=== PATIENT | male | born 1965 | race African-American/Black ===

== ENCOUNTER 2017-12-03 07:13 | Day surgery (SDC) | payer OTHER ==
[~2017-12-03 07:13] MED LIST: Buffered Lidocaine 0.9% SYRIN* 5 ML/SYR SYRINGE INTRADERM ONE
[2017-12-03] MEDS ORDERED: Acetaminophen TAB* 325 MG PO PRN (08:41)
[2017-12-03] MEDS ORDERED: Levalbuterol 0.63MG/3ML NEB* UNIT OF USE INH PRN (08:41)
[2017-12-03] MEDS ORDERED: Naloxone* 0.4 MG/ML 1 ML VIAL IV PRN (08:41)
[2017-12-03] MEDS ORDERED: DiMENhydriNATE IV* 50 MG/ML VIAL IV PUSH PRN (08:41)
[2017-12-03] MEDS ORDERED: PROCHLORPERAZINE INJ 5 MG/ML 2 ML VIAL IV PRN (08:41)
[2017-12-03] MEDS ORDERED: Midazolam* 1 MG/ML 2 ML VIAL (2 MG) ONE (08:43)
[2017-12-03] MEDS ORDERED: fentaNYL* 50 MCG/ML 2 ML VIAL (100 MCG VIAL) ONE (08:43)
[2017-12-03] MEDS ORDERED: Bupivacaine 0.25% SDV* 30 ML ONE (08:58)
[2017-12-03] MEDS ORDERED: Ketorolac INJ* 30 MG/ML 1 ML VIAL ONE (09:14)
[2017-12-03] MEDS ORDERED: Propofol* 10 MG/ML 20 ML BTL IV PUSH ONE (09:14)
[2017-12-03] MEDS ORDERED: Lidocaine 2% PF * 5 ML VIAL ONE (09:14)
[2017-12-03 09:57] VITALS: BP 118/70
--- NOTE | 2017-12-03 10:16 | OP ---
Operative Report - Blank - Operative Report Date of Operation: 12/03/17 Note: DATE OF OPERATION: 12/03/17 - [facility] DATE OF : 63 SURGEON: Taco Singleton MD JAMMER HOOKER: LAMAR López ANESTHESIOLOGIST: Dr. Lopez. ANESTHESIA: Local MAC. PRE-OP DIAGNOSIS: Right carpal tunnel syndrome. POST-OP DIAGNOSIS: Right carpal tunnel syndrome. OPERATIVE PROCEDURE: Right open carpal tunnel release. INDICATIONS: Gray has progressive right carpal tunnel syndrome. We talked about risks and benefits. He wanted to proceed. ESTIMATED BLOOD LOSS: 2 mL. COMPLICATIONS: None. FINDINGS: As expected. DESCRIPTION OF PROCEDURE: Gray was seen in the preoperative holding area. The correct side, site and the procedure were identified. We came back to the operating room. I anesthetized the operative area with 0.25% plain Marcaine. The arm was prepped and draped in usual fashion. The arm was exsanguinated with the Esmarch and the tourniquet was inflated to 250 mmHg. I made a 2 to 3 cm longitudinal incision in the standard location for an open carpal tunnel release. Dissection was carried down through the subcutaneous tissue and palmar fascia. Transverse carpal ligament was released off the radial aspect of the hook of the hamate. The release was completed distally and proximally I released the fascia and subcutaneous tissue and retracted this volarly and ulnarly and then under direct visualization I released the remainder of the transverse carpal ligament and distal antebrachial fascia to level several centimeters proximal to the wrist flexion crease. The release at this point was complete. Everything was looking good with absolutely no compression on the nerve. I irrigated out the wound. Skin was closed with 4-0 nylon suture. Wounds were dressed appropriately and he was taken to recovery room in stable condition.
== END 2017-12-03 10:00 ==
LOC: OREAST 07:13
PROVIDERS: ATTEND Orthopaedic Surgery Hand Surgery
DX: G56.01 Carpal tunnel syndrome, right upper limb (principal); E11.9 Type 2 diabetes mellitus without complications; Z79.84 Long term (current) use of oral hypoglycemic drugs; I10 Essential (primary) hypertension; M19.90 Unspecified osteoarthritis, unspecified site; F19.21 Other psychoactive substance dependence, in remission; Z87.891 Personal history of nicotine dependence
CPT/HCPCS: J1885; J2250; J2704; J3010

== ENCOUNTER 2018-03-18 06:41 | Day surgery (SDC) | payer OTHER ==
[2018-03-18] MEDS ORDERED: Ondansetron INJ* 2 MG/ML VIAL IV PRN (07:15)
[2018-03-18] MEDS ORDERED: fentaNYL* 50 MCG/ML 2 ML VIAL (100 MCG VIAL) IV PRN (07:15)
[2018-03-18] MEDS ORDERED: Naloxone* 0.4 MG/ML 1 ML VIAL IV PRN (07:15)
[2018-03-18] MEDS ORDERED: oxyCODONE/Acetamin 5/325 MG* TAB PO PRN (07:15)
[2018-03-18] MEDS ORDERED: Acetaminophen TAB* 325 MG PO PRN (07:15)
[2018-03-18] MEDS ORDERED: fentaNYL* 50 MCG/ML 2 ML VIAL (100 MCG VIAL) ONE (07:51)
[2018-03-18] MEDS ORDERED: Midazolam* 1 MG/ML 2 ML VIAL (2 MG) ONE (07:51)
[2018-03-18] MEDS ORDERED: Bupivacaine 0.5%* 50 ML VIAL ONE (08:14)
--- NOTE | 2018-03-18 09:10 | OP ---
Operative Report - Blank - Operative Report Date of Operation: 03/18/18 Note: DATE OF OPERATION: 03/18/17 - [facility] DATE OF : 1965 SURGEON: Taco Singleton MD FINANCIAL ANALYST INTERN: LAMAR López ANESTHESIOLOGIST: Dr. Cummings. ANESTHESIA: Local MAC. PRE-OP DIAGNOSIS: Left carpal tunnel syndrome. POST-OP DIAGNOSIS: Left carpal tunnel syndrome. OPERATIVE PROCEDURE: Left open carpal tunnel release. INDICATIONS: Gray has progressive left carpal tunnel syndrome. We talked about risks and benefits. He wanted to proceed. He has done well with a right carpal tunnel release. ESTIMATED BLOOD LOSS: 2 mL. COMPLICATIONS: None. FINDINGS: As expected. DESCRIPTION OF PROCEDURE: Gray was seen in the preoperative holding area. The correct side, site and the procedure were identified. We came back to the operating room. I anesthetized the operative area with 0.25% plain Marcaine. The arm was prepped and draped in usual fashion. The arm was exsanguinated with the Esmarch and the tourniquet was inflated to 250 mmHg. I made a 2 to 3 cm longitudinal incision in the standard location for an open carpal tunnel release. Dissection was carried down through the subcutaneous tissue and palmar fascia. Transverse carpal ligament was released off the radial aspect of the hook of the hamate. The release was completed distally and proximally I released the fascia and subcutaneous tissue and retracted this volarly and ulnarly and then under direct visualization I released the remainder of the transverse carpal ligament and distal antebrachial fascia to a level several centimeters proximal to the wrist flexion crease. The release at this point was complete. Everything was looking good with absolutely no compression on the nerve. I irrigated out the wound. Skin was closed with 4-0 nylon suture. Wounds were dressed appropriately and he was taken to recovery room in stable condition.
[2018-03-18] MEDS ORDERED: Propofol* 10 MG/ML 20 ML BTL IV PUSH ONE (09:38)
[2018-03-18 09:54] VITALS: BP 135/83
== END 2018-03-18 09:57 ==
LOC: OREAST 06:41
PROVIDERS: ATTEND Orthopaedic Surgery Hand Surgery
DX: G56.02 Carpal tunnel syndrome, left upper limb (principal); E11.9 Type 2 diabetes mellitus without complications; Z79.84 Long term (current) use of oral hypoglycemic drugs; I10 Essential (primary) hypertension; M19.90 Unspecified osteoarthritis, unspecified site; Z87.891 Personal history of nicotine dependence; F19.11 Other psychoactive substance abuse, in remission
CPT/HCPCS: J2250; J2704; J3010

== ENCOUNTER 2018-11-15 06:41 | Day surgery (SDC) | payer OTHER ==
[~2018-11-15 06:41] MED LIST changes: -Buffered Lidocaine 0.9% SYRIN* 5 ML/SYR SYRINGE INTRADERM ONE; +Buffered Lidocaine 1% SYRIN* 1 ML/SYRINGE INTRADERM ONE; +Famotidine IV* 10 MG/ML 2 ML (20 mg) IV ONE; +Lactated Ringers 1000 ML Bag* 1,000 ML IV SCH
[2018-11-15] MEDS ORDERED: Famotidine IV* 10 MG/ML 2 ML (20 mg) ONE (07:54)
[2018-11-15] MEDS ORDERED: Midazolam* 1 MG/ML 5 ML VIAL (5 MG) ONE (08:57)
[2018-11-15] MEDS ORDERED: fentaNYL* 50 MCG/ML 2 ML VIAL (100 MCG VIAL) ONE (08:57)
[2018-11-15] MEDS ORDERED: Bupivacaine 0.25% EPI 200,000* 30 ML SDV ONE (10:02)
[2018-11-15] MEDS ORDERED: Propofol* 10 MG/ML 20 ML BTL ONE (10:41)
[2018-11-15] MEDS ORDERED: Ketorolac INJ* 30 MG/ML 1 ML VIAL ONE (10:41)
[2018-11-15] MEDS ORDERED: Ondansetron INJ* 2 MG/ML VIAL ONE (10:41)
[2018-11-15] MEDS ORDERED: Dexamethasone IV* 4 MG/ML 1 ML (4 MG) ONE (10:41)
[2018-11-15] MEDS ORDERED: DiMENhydriNATE IV* 50 MG/ML VIAL IV PUSH PRN (10:56)
[2018-11-15] MEDS ORDERED: Acetaminophen TAB* 325 MG PO PRN (10:56)
[2018-11-15 11:32] VITALS: BP 155/89
[2018-11-15] MEDS ORDERED: Acetaminophen TAB* 325 MG ONE (11:34)
--- NOTE | 2018-11-15 21:51 | OP ---
DATE OF OPERATION: 11/15/18 - [facility] DATE OF : 63 SURGEON: Taco Singleton M.D. OUTPATIENT THERAPIST: LAMAR López. ANESTHESIOLOGIST: Dr. Kerns. ANESTHESIA: Local MAC. PRE-OP DIAGNOSIS: Right trigger thumb, stuck in flexion. POST-OP DIAGNOSIS: Right trigger thumb, stuck in flexion. OPERATIVE PROCEDURE: Right trigger thumb release. INDICATIONS: Gray' thumb is stuck in flexion. We had talked about risks and benefits. He had wanted to proceed. ESTIMATED BLOOD LOSS: 1 mL. COMPLICATIONS: None. FINDINGS: See above and below. DESCRIPTION OF PROCEDURE: Gray was seen in the preoperative holding area. The correct site, side, and procedure were identified. We came back to the operating room where we had time-out and then I infiltrated the operative area with 0.25% plain Marcaine. The arm was then prepped and draped in the usual fashion and a time-out was performed. I made a 1 cm transverse incision in the MP joint flexion crease. Full- thickness flaps were bluntly raised off the tendon sheath with tenotomy scissors and then released the A1 lucretia with the #15 blade longitudinally. The release was completed distally and proximally with the tenotomy scissors. I then was able to fully flex and extend the thumb. The decompression was checked again. The wound was irrigated out. The skin was closed with 4-0 nylon suture. Soft dressings were applied and he was taken to the recovery room in stable condition. [id number]/[facility] #: [id number] MTDD
== END 2018-11-15 12:20 | disposition home or self-care (01) ==
LOC: OR 06:41
PROVIDERS: ATTEND Orthopaedic Surgery Hand Surgery
DX: M65.311 Trigger thumb, right thumb (principal); I10 Essential (primary) hypertension; I51.9 Heart disease, unspecified; E11.9 Type 2 diabetes mellitus without complications; F19.20 Other psychoactive substance dependence, uncomplicated; F17.210 Nicotine dependence, cigarettes, uncomplicated
CPT/HCPCS: A9270-GY; J1100; J1885; J2250; J2405; J2704; J3010

== ENCOUNTER → 2019-03-07 | Day surgery (SDC) | payer OTHER ==
[~2019-03-07] MED LIST changes: +Bupivacaine 0.25% SDV PF* 10 ML VIAL INJ ONE; +Bupivacaine 0.5%* 50 ML MDV VIAL ONE; -Famotidine IV* 10 MG/ML 2 ML (20 mg) IV ONE; +Lidocaine 1% INJ* 10 MG/ML 30 ML SDV ONE; +Lidocaine 2% PF * 5 ML VIAL ONE; +Midazolam* 1 MG/ML 2 ML VIAL (2 MG) ONE; +Naloxone* 0.4 MG/ML 1 ML VIAL IV PRN; +Propofol* 10 MG/ML 20 ML BTL ONE; +ceFAZolin 2 GM in NS PREMIX(*) 2 GM/100 ML BAG IVPB ONE; +fentaNYL* 50 MCG/ML 2 ML VIAL (100 MCG VIAL) ONE; +oxyCODONE/Acetamin 5/325 MG* TAB ONE; +oxyCODONE/Acetamin 5/325 MG* TAB PO PRN
[2019-03-07 11:00] VITALS: BP 145/90
--- NOTE | 2019-03-07 13:59 | OP ---
DATE OF OPERATION: 03/07/19 - [facility] DATE OF : 63 SURGEON: Taco Singleton MD BACKSHOE PERSON: LAMAR López ANESTHESIOLOGIST: Dr. Couch. ANESTHESIA: General. 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 POST-OP DIAGNOSIS: Left medial nerve compression in the proximal forearm. OPERATIVE PROCEDURE: Decompression of the left median nerve in the proximal forearm with release of the lacertus fibrosus. INDICATIONS: Gray has undergone prior bilateral carpal tunnel surgeries. He is doing well, but he is still having median nerve symptoms on the left. He has some FPL weakness and lot of pain along the course of the median nerve. When I compress over the median nerve in the proximal forearm, it elicits a lot of pain and discomfort. We had talked about his treatment options, did want to see if he could get some relief by decompressing that nerve. ESTIMATED BLOOD LOSS: 2 mL. COMPLICATIONS: None. FINDINGS: See above and below. DESCRIPTION OF PROCEDURE: Gray was seen in the preoperative holding area. The correct side, site, and procedure were identified. We came back to the operating room. The arm was prepped and draped in the usual fashion and a time- out was performed. The arm was exsanguinated with the Esmarch and the tourniquet was inflated to 250 mmHg. I made a 3 cm transverse incision a couple centimeters distal to the antecubital flexion crease. The dissection was carried down bluntly to the subcutaneous tissue preserving any traversing sensory nerves. Retractors were placed and the fat overlying the median nerve was visualized. Lacertus fibrosus was visualized. I went ahead and released all of these with the tenotomy scissors; first, I worked distally and then I came proximally. Again, the lacertus was released in its entirety. I confirmed to make sure that we had a very nice decompression of the nerve. Everything was looking very good. I irrigated out the wound and the skin was closed with 4-0 Monocryl suture and Steri-Strips. 0.25% Marcaine was infiltrated all about the operative areas. Soft dressings were applied. He was woken up and taken to the recovery room in stable condition. [id number]/[facility] #: [id number] [facility]
== END | disposition home or self-care (01) ==
LOC: OR 06:42
PROVIDERS: ATTEND Orthopaedic Surgery Hand Surgery
DX: G56.12 Other lesions of median nerve, left upper limb (principal)
CPT/HCPCS: A9270-GY; J0690; J2250; J2704; J3010; J3490